=== PATIENT | male | born 1955 | race Caucasian/White ===

== ENCOUNTER 2022-06-02 03:01 | Day surgery (SDC) | payer MEDICARE, SELFPAY ==
[2022-05-29 11:51] VITALS: BMI 26.4
--- NOTE | 2022-05-30 14:39 | P.HP_ITS ---
History of Present Illness History of Present Illness Consent: Risks, benefits, and alternatives have been discussed and questions answered. Patient agrees to proceed with procedure. Chief complaint: neoplasm screening Narrative: Carla Dupree is a 66 year old male Referred for colon cancer screening. Review of Systems Review of Systems: All systems reviewed & are unremarkable except as noted in HPI and below PMFSH Past Medical History Medical History Annual physical exam Colonoscopy planned Squamous cell cancer of buccal mucosa Surgical History Surgical History History of radical neck dissection Social History Social History Smoking status: Never smoker Alcohol intake: current Drinks per week: 6 Alcohol use details: SOCIALLY Substance use: never Substance use type: does not use Living arrangements: with family Spiritual care concerns: No Meds Home Medications and Allergies Home Medications Medication Instructions Recorded Confirmed Type levothyroxine 125 mcg tablet 125 mcg PO DAILY #90 tabs 04/30/22 05/29/22 Rx losartan 100 1 tablet PO DAILY #90 tabs 04/30/22 05/29/22 Rx mg-hydrochlorothiazide 12.5 mg tablet tamsulosin 0.4 mg capsule (Flomax) 0.4 mg PO HS 06/02/22 06/02/22 History Allergies Allergy/AdvReac Type Severity Reaction Status Date / Time No Known Allergies Allergy Verified 06/02/22 10:11 Exam Const: General: alert Orientation/consciousness: patient oriented x3 Resp: Auscultation: clear to auscultation bilaterally Cardio: Rhythm: regular rhythm GI: GI Palp: Yes Soft to palpation and No Tenderness to palpation present (GI) Neuro: General: patient oriented x3 Assessment and Plan Assessment and plan (1) Colon cancer screening: Code(s): Z12.11 - Encounter for screening for malignant neoplasm of colon Status: Acute Assessment and Plan: Colonoscopy with possible biopsy or polypectomy or cautery or injection of ross bstances.
[2022-06-02 10:14] VITALS: BP 127/81; PULSE 78; RESP 18; TEMP 36.3; O2SAT 100; BMI 25.8
[2022-06-02] MEDS: LACTATED RINGERS 1,000 ML 150 ML IV CONT (10:29)
--- NOTE | 2022-06-02 10:34 | P.PNAN_ITS ---
Anes - Initial Pre Proc Eval Procedure: Operation Date: 06/02/22 11:15 Proposed Procedures p Screening Colonoscopy - Ankush Jefferson MD Date/Time: 06/02/22 10:34 Surgeon: Ankush Jefferson MD Pre Op Diagnosis: neoplasm screening Patient Data Age: 66 Gender: M Height: 1.83 m Weight: 86.4 kg Last Vital Signs Temp 36.3 C L 06/02/22 10:14 Pulse 78 06/02/22 10:14 Resp 18 06/02/22 10:14 BP 127/81 06/02/22 10:14 Pulse Ox 100 06/02/22 10:14 O2 Del Method Room Air 06/02/22 10:14 Allergies Allergy/AdvReac Type Severity Reaction Status Date / Time No Known Allergies Allergy Verified 06/02/22 10:11 Home Medications Medication Instructions Recorded Confirmed Type levothyroxine 125 mcg tablet 125 mcg PO DAILY #90 tabs 04/30/22 05/29/22 Rx losartan 100 1 tablet PO DAILY #90 tabs 04/30/22 05/29/22 Rx mg-hydrochlorothiazide 12.5 mg tablet tamsulosin 0.4 mg capsule (Flomax) 0.4 mg PO HS 06/02/22 06/02/22 History Patient hx anesthesia problems: none Family hx anesthesia problems: none Results Review: All pre-operative results and documents have been reviewed as part of the pre- operative evaluation. [facility] Past Medical History Medical History Annual physical exam Colonoscopy planned Squamous cell cancer of buccal mucosa Surgical History Surgical History (Updated 06/02/22 @ 10:35 by Nneo Paredes MD) History of radical neck dissection Social History Social History Smoking status: Never smoker Alcohol intake: current Drinks per week: 6 Alcohol use details: SOCIALLY Substance use: never Substance use type: does not use Living arrangements: with family Spiritual care concerns: No Anes - Eval Final PreProcedure Day of Procedure 06/02/22 10:34 Patient weight: normal Heart: regular rate and rhythm Lungs: clear to auscultation Airway: Mallampati scale class II and other (Right neck dissection and radiation) Neurological: alert and oriented Last oral intake: >/= 8 hours Emergent: no Anesthetic plan: proceed Anesthesia type and monitoring: general GIVS and standard monitoring Results Review: All pre-operative results and documents have been reviewed as part of the pre- operative evaluation. Informed Consent: The patient's anesthetic plan and its attendant risks and benefits were discussed with the patient/family/POA. Questions were solicited and answers provided to the satisfaction of the patient/family/POA.
[2022-06-02] MEDS: SIMETHICONE ORAL SUSPENSION 20 MG/0.3 ML 30 ML BOTTLE 0.6 ML IRRIGATION (11:17)
[2022-06-02 11:32] VITALS: BP 100/68; PULSE 58; RESP 15; O2SAT 96
[2022-06-02 11:42] VITALS: BP 119/72; PULSE 62; RESP 22; O2SAT 100
[2022-06-02 11:52] VITALS: BP 127/81; PULSE 67; RESP 15; O2SAT 100
== END 2022-06-02 12:00 | disposition home or self-care (01) ==
PROVIDERS: PCP Family Medicine; Visit Provider Internal Medicine Gastroenterology
PROC: 0DJD8ZZ Inspection of Lower Intestinal Tract, Via Natural or Artificial Opening Endoscopic (ICD-10-PCS; CPT 45378; principal; 2022-06-02 11:15)
DX: Z12.11 Encounter for screening for malignant neoplasm of colon (principal); K57.30 Diverticulosis of large intestine without perforation or abscess without bleeding; D12.8 Benign neoplasm of rectum
CPT/HCPCS: 45385; 88305; J2704; J7120